=== PATIENT | male | born 1960 | race Caucasian/White ===

== ENCOUNTER → 2016-09-08 | Outpatient (CLI) | payer OTHER ==
--- NOTE | 2016-09-08 10:56 | XR ---
EXAMINATION TYPE: XR shoulder complete LT DATE OF EXAM: 09/08/2016 10:38 AM COMPARISON: NONE HISTORY: Reduced range of motion TECHNIQUE: Three views are submitted. FINDINGS: The osseous structures are intact. There is no acute fracture or dislocation. The AC joint is maint ained. There is mild hypertrophic change and narrowing of the AC joint. IMPRESSION: 1. Mild AC joint arthropathy.
== END ==
LOC: RADXRMAIN 09:52
PROVIDERS: ATTEND Family Medicine
DX: M19.012 Primary osteoarthritis, left shoulder (principal)

== ENCOUNTER → 2016-09-12 | Outpatient (CLI) | payer OTHER ==
--- NOTE | 2016-09-12 16:41 | MR ---
EXAMINATION TYPE: MR shoulder LT wo con DATE OF EXAM: 09/12/2016 4:26 PM COMPARISON: Left shoulder x-ray January 08, 2017. HISTORY: Lt shoulder pain x 8 months, no trauma TECHNIQUE: Multiplanar, multisequence imaging of the left shoulder is performed without contrast. FINDINGS: Rotator Cuff: The supraspinatus and infraspinatus tendons are grossly intact to humeral head attachme nt. Some intermediate signal in distal fibers the posterior aspect of supraspinatus tendon is noted o n parasagittal image 10 and paracoronal image 16. Some intermediate signal distal infraspinatus tendo n is seen best on paracoronal image 13. No full-thickness retracted tear is evident. Subscapularis te ndon is intact. Rotator cuff muscle bulk is preserved. Acromioclavicular Joint: There is capsular hypertrophy at acromioclavicular joint. There is some infe rior sloping of distal acromion. No significant spurring is seen Glenohumeral Joint: There is moderate-sized glenohumeral joint effusion. There is mild to moderate christen int space loss. Synovial thickening is present. No significant spurring is noted. Labrum: The labrum appears grossly intact given limitation of non-arthrogram study. Biceps Tendon: The long head of biceps is in normal location within bicipital groove. Some increased signal along the lateral aspect of the proximal extra-articular portion of biceps tendon is suspiciou s for partial tear seen best on axial images 8 through 12. Surrounding fluid is presumed product of t he glenohumeral joint effusion. Bone marrow signal: Subchondral cystic change in the posterior superior humeral head is noted. Other: No additional significant abnormality is appreciated. IMPRESSION: 1. Tendinosis of distal supraspinatus and infraspinatus tendons. No full-thickness rotator cuff or la bral tear is seen. 2. Moderate degenerative changes acromioclavicular and glenohumeral joint as detailed above. Type II downsloping acromion noted. 3. Suspect partial vertical type tear proximal extra-articular portion of long head of biceps tendon.
== END | disposition home or self-care (01) ==
LOC: RADMRIMAIN 15:33
PROVIDERS: ATTEND Family Medicine
DX: S46.012D Strain of muscle(s) and tendon(s) of the rotator cuff of left shoulder, subsequent encounter (principal); X58.XXXD Exposure to other specified factors, subsequent encounter; M19.012 Primary osteoarthritis, left shoulder

== ENCOUNTER → 2016-09-27 | Outpatient (CLI) | payer OTHER ==
[2016-09-27 10:58] LABS: Potassium 4.7 mmol/L (3.5-5.1)
[2016-09-27 11:03] LABS: Basophils % (A) 1 %; CH 30.9; CHCM 33.3; Eosinophils # (A) 0.2 k/uL (0-0.7); Eosinophils % (A) 4 %; HCT 49.3 % (39.0-53.0); HDW 2.33; HGB 16.5 gm/dL (13.0-17.5); Luc # (Auto) 0.11; Luc % (Auto) 2; Lymphocytes # (A) 1.3 k/uL (1.0-4.8); Lymphocytes % (A) 24 %; MCH 31.1 pg (25.0-35.0); MCHC 33.4 g/dL (31.0-37.0); MCV 93.1 fL (80.0-100.0); Mean Platelet Volume 7.4; Monocytes # (A) 0.3 k/uL (0-1.0); Monocytes % (A) 6 %; Neutrophils # (A) 3.3 k/uL (1.3-7.7); Neutrophils % (A) 63 %; RBC 5.29 m/uL (4.30-5.90); RDW 12.4 % (11.5-15.5); WBC 5.2 k/uL (3.8-10.6); WBC (Perox) 4.76
== END | disposition home or self-care (01) ==
LOC: LABPAT 10:03
PROVIDERS: ATTEND Orthopaedic Surgery
DX: Z01.812 Encounter for preprocedural laboratory examination (principal)
CPT/HCPCS: 80051; 85025

== ENCOUNTER 2016-10-11 08:50 | Day surgery (SDC) | payer OTHER ==
[2016-10-09 14:51] VITALS: BMI 28.1
--- NOTE | 2016-10-10 17:23 | HP ---
DATE OF ADMISSION: 10/11/2016 Jan Hylton is a 56-year-old patient seen with progressive left shoulder pain. After treatment options were discussed, he elected to proceed with left shoulder arthroscopy. Consent was obtained. Past medical history is hyperlipidemia. PAST SURGICAL HISTORY: Noncontributory. DAILY MEDICATIONS: 1. Alprazolam. 2. Zocor. 3. Zovirax. ALLERGIES: NONE. SOCIAL HISTORY: Patient denies current tobacco use. PHYSICAL EVALUATION OF THE LEFT SHOULDER: Flexion 90 degrees, abduction 75 degrees. External rotation is 10 degrees with weakness. Tenderness along the anterolateral rotator cuff area and acromioclavicular joint. Impingement positive 70 degrees. Distal neurovascular exam is intact. Radiographs of the left shoulder revealed a type II anterior acromion, acromioclavicular joint osteoarthritis, cystic changes of the tuberosity. An MRI of the left shoulder revealed type II anterior acromion and partial biceps tendon tear. IMPRESSION: Left shoulder impingement with possible rotator cuff tear, acromioclavicular joint osteoarthritis and partial biceps tendon tear. PLAN: Left shoulder arthroscopy with subacromial decompression, possible arthroscopic rotator cuff repair, probable biceps tendon release, Ave and debridement.
[~2016-10-11 08:50] MED LIST: DEXAMETHASONE SOD PHOSPHATE 10 MG/ML 1 ML VIAL IV ONE; HYDROmorphone 1 MG/ML 1 ML SYRINGE IVP PRN; LACTATED RINGERS 1,000 ML IV SCH; LIDOCAINE 1% 20 ML VIAL (10MG/ML) FOR IV START INTRADERMA PRN; MIDAZOLAM 2 MG/2 ML VIAL IV PRN; ONDANSETRON 4 MG/2 ML VIAL IVP ONE; SCOPOLAMINE 1.5MG/72HR PATCH TRANSDERM ONE; ceFAZolin 2 GM in SODIUM CHLORIDE 0.9% 100 ML IVPB ONE
[2016-10-11] MEDS ORDERED: fentaNYL (PF) 50 MCG/ML 2 ML AMP IV ONE (09:29)
[2016-10-11] MEDS ORDERED: LIDOCAINE 1% INJ 10MG/ML (20 ML MDV) ONE (10:20)
[2016-10-11] MEDS ORDERED: ROCURONIUM BROMIDE 10 MG/ML 10 ML VIAL IV ONE (10:20)
[2016-10-11] MEDS ORDERED: ROPIVACAINE 5 MG/ML 30 ML VIAL ONE (10:20)
[2016-10-11] MEDS ORDERED: PROPOFOL 10 MG/ML 20 ML VIAL IV ONE (10:20)
[2016-10-11] MEDS ORDERED: MIDAZOLAM 2 MG/2 ML VIAL ONE (10:20)
[2016-10-11] MEDS ORDERED: SUCCINYLCHOLINE CHLORIDE 100 MG/5 ML SYR IV ONE (10:20)
[2016-10-11] MEDS ORDERED: LIDOCAINE 2%-EPI 1:100,000 20 ML VIAL ONE (10:20)
[2016-10-11] MEDS ORDERED: fentaNYL (PF) 50 MCG/ML 2 ML AMP ONE (10:20)
[2016-10-11] MEDS ORDERED: LACTATED RINGERS 1,000 ML IV ONE (11:24)
[2016-10-11 11:52] VITALS: TEMP 97.4
--- NOTE | 2016-10-11 11:58 | P.OP ---
Date of Procedure: 10/11/16 Preoperative Diagnosis: Left shoulder impingement Postoperative Diagnosis: 1. Left shoulder impingement 2. Left shoulder superficial rotator cuff tear 3. Left shoulder acromioclavicular joint osteoarthritis 4. Left shoulder superficial labral tear 5. 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 Left shoulder arthroscopic subacromial decompression 2. Left shoulder arthroscopic debridement partial rotator cuff tear 3. Left shoulder arthroscopic chondroplasty humeral head 4. Left shoulder arthroscopic Ave procedure 5. Left shoulder arthroscopic debridement superficial labral tear Anesthesia: GETA, regional (Shoulder block) Surgeon: Cezar Melendez Chief Lock Tender Operator #1: Khurram Cole Estimated Blood Loss (ml): 10 Pathology: none sent Condition: stable Disposition: PACU Indications for Procedure: 55-year-old patient seen with left shoulder pain. After having treatment options discussed, he elected to proceed left shoulder arthroscopy. Operative Findings: See description of procedure Description of Procedure: Patient underwent a shoulder block by department of anesthesia. The patient was then taken to the operative suite. The patient underwent a general anesthetic by the department of anesthesia. The patient was placed into a lateral position and secured. There was appropriate padding of the bony prominence. Left shoulder was then prepped and draped in normal sterile orthopedic fashion. We placed the extremity in 10 pounds of longitudinal traction. A posterior incision was now made for a posterior working portal site. The trocar and cannula were inserted into the glenohumeral joint. Arthroscopy was initiated. Spinal needle was now inserted anteriorly, to ascertain the anterior working portal site. An incision was now made in that area, a trocar was inserted followed by a probe. There was grade 3/4 chondromalacia of the humeral head with large osteochondral tears present. There were grade 1 chondral moist changes of the glenoid fossa. Superficial tearing of the superior labrum was present. Biceps tendon appeared intact. I did not see evidence for rotator cuff tear. There were no loose bodies. I debrided the superficial labral tear down to stable tissue. I performed a chondroplasty humeral head on a stable tissue. The residual osteochondral surface was probed and found to be stable. Instruments now removed from glenohumeral joint. Utilizing the posterior working portal site, the trocar and cannula were inserted into the subacromial space. Arthroscopy initiated. I made an incision 2 fingerbreadths lateral to the acromion. I introduced my trocar followed by my ArthroCare ablator. I now began ablating thick subacromial bursal tissue, which exposed the undersurface of the anterior acromion. This was diminished subacromial space. There was a very prominent anterior acromion. A motorized bur was introduced and a subacromial decompression was performed. I also excised some osteophytes off the inferior aspect of the distal clavicle. The AC joint was visualized and noted to be fairly arthritic. Our motorized bur was introduced in the anterior portal site and a Ave procedure was performed without difficulty, decompressing the AC joint nicely. I turned my attention to the rotator cuff. There was some superficial tearing of the distal supraspinatus. I used the motorized shaver and debrided that down to stable tissue. The residual rotator cuff tendon was probed and found to be stable. There was no evidence for perforation or complete tear. The residual tissue appeared adequate. I injected 1 mL of Allogen intra-articular as well as at the debrided rotator cuff tendon site. Instruments now removed from the portal sites. All portal sites were approximated with nylon suture. Sterile dressings were applied followed by a shoulder immobilizer. Hernan WILLIAMSON assisted with the procedure. The patient was awakened, transferred to a bed, and taken to recovery in stable condition.
[2016-10-11 12:34] VITALS: RESP 16
[2016-10-11 13:35] VITALS: BP 129/83; PULSE 79
== END 2016-10-11 13:57 | disposition home or self-care (01) ==
LOC: OR 08:50
PROVIDERS: ATTEND Orthopaedic Surgery
DX: M75.42 Impingement syndrome of left shoulder (principal); M75.102 Unspecified rotator cuff tear or rupture of left shoulder, not specified as traumatic; M19.012 Primary osteoarthritis, left shoulder; M94.212 Chondromalacia, left shoulder; Z79.899 Other long term (current) drug therapy
CPT/HCPCS: 64415; 29823; 29824; C1765; J2250; J1100; J0690; J2405; J2001; J3010; J2795; J0330; J2704

== ENCOUNTER → 2018-04-18 | Outpatient (CLI) | payer OTHER ==
--- NOTE | 2018-04-18 09:22 | US ---
EXAMINATION TYPE: US gallbladder DATE OF EXAM: 04/18/2018 COMPARISON: NONE CLINICAL HISTORY: R10.10 Upper abdominal pain, unspecified. EXAM MEASUREMENTS: Liver Length: 15.1 cm Gallbladder Wall: 0.4 cm CBD: 0.1 cm Right Kidney: 10.2 x 4.9 x 5.5 cm Pancreas: Tail obscured by overlying bowel gas Liver: small cyst left lobe 0.9 x 0.7 x 0.4 cm, heterogenous liver Gallbladder: 3 small echogenic areas non shadowing in wall, probable small polyps. Evidence for sonographic Gray's sign: No CBD: wnl Right Kidney: wnl IMPRESSION: 1. Nonspecific mild gallbladder wall thickening that can be seen and hypoproteinemia, gallbladder dys function, or from adjacent hepatocellular disease. No other evidence of acute cholecystitis. HIDA sca n with CCK could be performed for further evaluation of biliary dysfunction. 2. Small gallbladder polyps measuring up to 3 mm are also present for which annual surveillance is re commended for polyps of ascites.
== END | disposition home or self-care (01) ==
LOC: RADUSWWP 08:20
PROVIDERS: ATTEND Family Medicine
DX: K82.4 Cholesterolosis of gallbladder (principal); K82.8 Other specified diseases of gallbladder
CPT/HCPCS: 76705

== ENCOUNTER → 2018-07-02 | Outpatient (CLI) | payer OTHER ==
--- NOTE | 2018-07-03 05:19 | NM ---
EXAMINATION TYPE: NM hepatobiliary w EF DATE OF EXAM: 07/02/2018 COMPARISON: Correlation ultrasound 04/18/2018 HISTORY: 57-year-old male with gallbladder disease, epigastric pain. TECHNIQUE: After the intravenous administration of 4.78 mCi Tc 99m Mebrofenin hepatobiliary scintigra phy is performed. Immediate images post injection. FINDINGS: There is satisfactory initial accumulation of tracer by the liver. The gallbladder is visualized wit hin 6 minutes. The small bowel activity is noted only after one hour following Ensure administration . At one hour 8 ounces of oral ensure plus is given to mimic CCK and gallbladder ejection fraction is calculated at 77 %, upper end of the normal range. Therefore there is no scintigraphic evidence of cystic or common bile duct obstruction to suggest acute cholecystitis or gallbladder dyskinesia. IMPRESSION: No scintigraphic evidence for acute/chronic cholecystitis or biliary dyskinesia.
== END | disposition home or self-care (01) ==
LOC: RADNMMAIN 12:26
PROVIDERS: ATTEND Family Medicine
DX: R93.2 Abnormal findings on diagnostic imaging of liver and biliary tract (principal)
CPT/HCPCS: 78226; A9537

== ENCOUNTER → 2019-04-16 | Outpatient (CLI) | payer OTHER ==
--- NOTE | 2019-04-16 16:26 | US ---
EXAMINATION TYPE: US gallbladder DATE OF EXAM: 04/16/2019 COMPARISON: NONE CLINICAL HISTORY: K82.4 Polyps. RUQ pain, nausea, GB polyps EXAM MEASUREMENTS: Liver Length: 14.3 cm Gallbladder Wall: 0.3 cm CBD: 0.4 cm Right Kidney: 12.6 x 6.6 x 5.9 cm Pancreas: Tail obscured by overlying bowel gas Liver: cystic area left lobe = 0.9 x 0.8 x 0.9cm Gallbladder: adenomyomatosis and polyps Evidence for sonographic Gray's sign: no CBD: limited evaluation, appears wnl as visualized Right Kidney: no evidence of hydronephrosis IMPRESSION: 1. Simple cyst left lobe liver. 2. Consider adenomyosis and polyps within the gallbladder. Small gallstones cannot be excluded.
== END | disposition home or self-care (01) ==
LOC: RADUSWWP 08:02
PROVIDERS: ATTEND Family Medicine
DX: K82.4 Cholesterolosis of gallbladder (principal); K76.89 Other specified diseases of liver
CPT/HCPCS: 76705

== ENCOUNTER → 2019-06-05 | Outpatient (CLI) | payer OTHER ==
--- NOTE | 2019-06-05 09:07 | FL ---
ESOPHOGRAM. HISTORY: Dysphagia Esophagram was performed per the air contrast technique. The patient swallowed barium and effervesce nt crystals without difficulty or delay. Esophageal peristalsis and motility appear to be within normal limits. There is no evidence for filling defect, mass or diverticulum. Mildly prominent distal esophageal folds suggesting esophagitis. Very small reducible hiatal hernia n oted. Subsequently single contrast cervical esophagram was performed which fails demonstrate evidence for a spiration penetration or mass. IMPRESSION: 1.Mildly prominent distal esophageal folds suggesting esophagitis. Very small reducible hiatal hernia noted.
== END | disposition home or self-care (01) ==
LOC: RADUSWWP 07:49
PROVIDERS: ATTEND Family Medicine
DX: K44.9 Diaphragmatic hernia without obstruction or gangrene (principal); R13.19 Other dysphagia
CPT/HCPCS: 74220